=== PATIENT | female | born 1960 | race African-American/Black ===

== ENCOUNTER 2017-02-06 21:22 | Emergency (ER) | payer OTHER ==
[~2017-02-06] VITALS: Ht 167.6 cm; Wt 74.8 kg
[~2017-02-06 21:22] MED LIST: ALEVE220 M1; IBUPROFEN 800800 M1; KLONOPIN0.5 MG PO; LITHIUM CARBON150 MG; LITHIUM CARBON150 MG PO; LITHIUM CARBON300 M3 PO; PREDNISONE 20 M20 MG PO; SALINE NASAL SP30 ML NS; VISTARIL 25 MG25 M1 PO; ZYPREXA 10 MG T10 MG; ZYPREXA 10 MG T10 MG PO
[2017-02-06 21:24] VITALS: BP 144/87
[2017-02-06] MEDS ORDERED: NAPROSYN500 MG PO (22:02)
[2017-02-06] MEDS ORDERED: NORFLEX100 MG PO (22:02)
== END 2017-02-06 22:15 | disposition home or self-care (01) ==
LOC: ER 21:22
DX: R51 Headache (principal); F32.9 Major depressive disorder, single episode, unspecified; M06.9 Rheumatoid arthritis, unspecified

== ENCOUNTER 2018-01-10 23:42 | Emergency (ER) | payer OTHER ==
[~2018-01-10] VITALS: Ht 167.6 cm; Wt 72.6 kg
[~2018-01-10 23:42] MED LIST changes: +CIPRO500 MG PO; +NAPROSYN500 MG PO; +NORFLEX100 MG PO; +PHENAZOPYRIDIN200 M2 PO
[2018-01-11] MEDS ORDERED: BUTALB-APAP-CA1 EACH PO (02:06)
[2018-01-11 02:22] VITALS: BP 121/65
== END 2018-01-11 02:15 | disposition home or self-care (01) ==
LOC: ER 23:42
DX: R51 Headache (principal); F32.9 Major depressive disorder, single episode, unspecified; M19.90 Unspecified osteoarthritis, unspecified site; Z98.890 Other specified postprocedural states

== ENCOUNTER 2020-03-19 08:16 | Emergency (ER) | payer OTHER ==
[~2020-03-19] VITALS: Ht 167.6 cm; Wt 72.6 kg
[~2020-03-19 08:16] MED LIST changes: +BUTALB-APAP-CA1 EACH PO
[2020-03-19 08:18] VITALS: BP 199/87
[2020-03-19] MEDS ORDERED: TREXALL5 MG PO (08:23)
[2020-03-19] MEDS ORDERED: FOLIC ACID1 MG PO (08:23)
== END 2020-03-19 09:57 | disposition home or self-care (01) ==
LOC: ER 08:16
DX: R51.9 Headache, unspecified (principal); R05 Cough; R11.0 Nausea; Z20.828 Contact with and (suspected) exposure to other viral communicable diseases; F32.9 Major depressive disorder, single episode, unspecified; Z98.890 Other specified postprocedural states; Z79.899 Other long term (current) drug therapy

== ENCOUNTER 2021-03-29 10:16 | Emergency (ER) | payer OTHER ==
[~2021-03-29] VITALS: Ht 167.6 cm; Wt 72.6 kg
[~2021-03-29 10:16] MED LIST changes: +FOLIC ACID1 MG PO; +TREXALL5 MG PO
[2021-03-29 10:52] VITALS: BP 147/101
== END 2021-03-29 11:44 | disposition home or self-care (01) ==
LOC: ER 10:16
PROVIDERS: Student in an Organized Health Care Education/Training Program
DX: J06.9 Acute upper respiratory infection, unspecified (principal); Z20.822 Contact with and (suspected) exposure to COVID-19; G43.909 Migraine, unspecified, not intractable, without status migrainosus; M06.9 Rheumatoid arthritis, unspecified; Z79.899 Other long term (current) drug therapy